=== PATIENT | female | born 1965 | race Caucasian/White ===

== ENCOUNTER 2020-04-09 15:09 | Inpatient (IN) | payer BC, SELFPAY ==
[2020-04-09] VITALS (32 sets, daily range): BP systolic 98–156; BP diastolic 53–81; PULSE 53–75; RESP 17–25; TEMP 36.4–36.7; O2SAT 90–99; BMI 53.3
--- NOTE | ~2020-04-09 | XR_ITS ---
XR chest 1V portable 04/09/2020 16:50 Indication: Shortness of breath. Lower extremity swelling. History of coronary artery disease. Procedure: AP portable chest Comparison: Comparison to multiple prior studies sequentially, with oldest reviewed study dated 12/2013. Findings: Cardiomegaly with mild chronic interstitial edema. Status post median sternotomy for CABG. There is a prosthetic heart valve. No pneumothorax or pleural effusion. No acute osseous abnormality. Impression: 1: Cardiomegaly with mild chronic interstitial edema. Reviewed, dictated and finalized at location A. Impression: 1: Cardiomegaly with mild chronic interstitial edema.
--- NOTE | ~2020-04-09 | CT_ITS ---
EXAMINATION: CT abdomen pelvis w con INDICATION: Lower abdominal pain TECHNIQUE: Computed tomographic images of the abdomen and pelvis were obtained after the administrati on of 100 cc of Omnipaque 350 intravenous contrast. The dose-length product (DLP) was 1419.52 mGy-cm. Automated exposure control and iterative reconstruction technique were employed. COMPARISON: 06/20/2013 FINDINGS: There are small pleural effusions. There are patchy groundglass opacities of the visualized lung bases. Surgical changes are noted in the mitral and tricuspid valves. The heart size is normal. The liver surface is nodular. There is a small volume of right upper quadrant right pericolic gutter ascites. Punctate calcifications in an otherwise normal spleen likely represent healed granulomatous disease. Stones are present in the nondistended gallbladder. The pancreas and adrenal glands are nor mal. The kidneys are unremarkable. There is no free intraperitoneal gas or evidence of bowel obstruct ion. No pathologically enlarged abdominal or pelvic lymph nodes are identified. There is diffuse anas arca, particularly involving the flanks and anterior abdominal wall. There is moderate thoracic and m ild lumbar spondylosis. A small fat-containing umbilical hernia is noted. IMPRESSION: 1. Cirrhosis with a small volume of ascites. 2. Patchy groundglass opacities of the visualized lung bases, infectious/inflammatory versus pulmonar y edema. 3. Anasarca involving the flanks and anterior abdominal subcutaneous tissues, correlate for celluliti s/panniculitis. Reviewed, dictated and finalized at location A. IMPRESSION: 1. Cirrhosis with a small volume of ascites. 2. Patchy groundglass opacities of the visualized lung bases, infectious/inflam matory versus pulmonary edema. 3. Anasarca involving the flanks and anterior abdominal subcutaneous tissues, c orrelate for cellulitis/panniculitis.
--- NOTE | 2020-04-09 15:16 | ECG_ITS ---
Measurements Intervals [place] Rate: 61 P: -28 [place]: 126 QRS: 94 QRSD: 90 T: 1 QT: 427 QTc: 430 Interpretive Statements SINUS OR ECTOPIC ATRIAL RHYTHM RIGHT AXIS DEVIATION BORDERLINE ST-T WAVE ABNORMALITY- INFERIOR LEADS BASELINE WANDER- V4-V6 BORDERLINE ECG Electronically Signed On 04-09-2020 15:56:59 CDT by Christos Sheth D.O.
[2020-04-09 15:56] LABS: Alveolar/Arterial O2 Gradient 61.9 mmHg; Base Excess ABG -0.2 mEq/l (+/-2.0); Carboxyhemoglobin 7.6 % THb (0-2.0); Fractional Inspired Oxygen 28 %; HCO3 ABG 25.6 mEq/l (22.0-26.0); Methemoglobin ABG 0.2 %THb (0-1.5); Oxygen Content ABG 19.2 %vol (16.0-22.0); Oxygen Saturation ABG 95.8 % (95.0-100.0); Oxyhemoglobin 88.1 % THb (90.0-100.0); PCO2 ABG 46.2 mmHg (35.0-45.0); PO2 ABG 83.2 mmHg (80.0-100.0); PO2 FiO2 Ratio Arterial Blood 2.97 %; Reduced Hemoglobin 4.1 %THb (0-5.0); Total Hemoglobin 15.5 g/dL (12.0-18.0); pH ABG 7.362 (7.350-7.450)
[2020-04-09 15:56] LABS: Basophils Absolute Auto 0.1 K/mm3 (0.0-0.1); Basophils Percent Auto 1.1 % (0.2-1.2); Eosinophils Absolute Auto 0.3 K/mm3 (0-0.3); Eosinophils Percent Auto 4.5 % (0-4.4); Hematocrit 46.8 % (37.0-47.0); Immature Granulocyte Absolute 0.03 K/mm3 (0.00-0.031); Immature Granulocyte Percent A 0.5 % (0-0.5); Lymphocytes Absolute Auto 1.38 K/mm3 (0.9-3.2); Lymphocytes Percent Auto 21.5 % (18.3-44.2); Mean Corpuscular HGB Conc 32.1 g/dl (32-36); Mean Corpuscular Hemoglobin 32.8 pg (26-34); Mean Corpuscular Volume 102.2 fl (80-100); Mean Platelet Volume 12.7 fl (7.4-10.4); Monocytes Absolute Auto 0.6 K/mm3 (0.1-0.6); Monocytes Percent Auto 9.3 % (2.6-8.5); Neutrophils Absolute Auto 4.1 K/mm3 (1.3-6.7); Neutrophils Percent Auto 63.1 % (45.5-73.1); Platelet Count Result 151 k/mm3 (150-375); Red Blood Count 4.58 M/mm3 (4.2-5.4); Red Cell Distribution Width 16.3 % (11.5-14.5); White Blood Count 6.4 K/mm3 (4.5-10.0)
[2020-04-09 15:57] LABS: Device NASAL CANNULA; Modified Allen's Test Pass; Site Drawn LEFT RADIAL
[2020-04-09 16:05] LABS: Ammonia 22 umol/L (9-30); Blood Urea Nitrogen 17 mg/dL (7-17); Calcium 8.7 mg/dL (8.4-10.2); Carbon Dioxide 29 mmol/L (22-30); Chloride 106 mmol/L (98-107); Estimated CRCL calculation 82 ml/min; Estimated Glomerular Filt Rate > 60; Glucose 90 mg/dL (65-105); INR 3.7; Potassium 3.9 mmol/L (3.4-5.0); Prothrombin Time 35.9 Seconds (11.1-14.7); Sodium 136 mmol/L (137-145)
[2020-04-09 16:06] LABS: Partial Thromboplastin Time 50.5 SECONDS (22.3-36.8)
[2020-04-09 16:08] LABS: Alanine Aminotransferase 23 U/L (4-35); Alkaline Phosphatase 328 U/L (38-126); Aspartate Amino Transferase 37 U/L (14-36); Bilirubin,Total 1.1 mg/dL (0.2-1.3)
[2020-04-09 16:17] LABS: Add Urine Microscopic? YES; Appearance Urine Clear (Clear); Bacteria Urine 4+ /hpf; Bilirubin Urine Negative (Negative); Blood Urine 1+ (Negative); Color Urine Yellow (Yellow); Glucose Urine UA Negative (Negative); Ketones Urine Negative (Negative); Leukocyte Esterase Ur Trace LEU/UL (Negative); Mucus Urine Rare /lpf; Nitrate Urine Positive (Negative); Protein Urine 1+ mg/dL (Negative); RBC Urine 0-2 /hpf (0-2); Specific Grav Ur 1.012 (1.001-1.035); Squamous Epithelial Cell Urine Many /hpf (Few); Urobilinogen Urine Negative mg/dL (<2.0)
[2020-04-09 16:17] LABS: NT Pro B Type Natriuretic Pept 740 PG/ML (5-100); Troponin I < 0.012 ng/mL (0.000-0.034)
--- NOTE | 2020-04-09 18:37 | ED.GENADULT ---
HPI - General Adult General Chief complaint: Shortness of Breath/Dyspnea Stated complaint: low O2, swelling, CHF problems Time Seen by Provider: 04/09/20 16:28 Source: patient and family History of Present Illness HPI narrative: 54 years old white female, morbidly obese, history of CHF, hypertension presents with lower abdominal pain for the last 7 days, possible constipation, also chronically swollen all over. Patient does not take her Lasix every day. She take it when she remembers. Patient denies any chest pain or shortness of breath. Related Data Home Medications Medication Instructions Recorded Confirmed amiodarone 200 mg tablet 200 mg PO DAILY 01/02/20 04/09/20 aspirin 81 mg tablet,delayed 81 mg PO DAILY 01/02/20 04/09/20 release budesonide-formoterol HFA 160 2 puff INHALATION Q12H 01/02/20 04/09/20 mcg-4.5 mcg/actuation aerosol inhaler gabapentin 300 mg capsule 300 mg PO TID 01/02/20 04/09/20 isosorbide mononitrate 60 mg 60 mg PO DAILY 01/02/20 04/09/20 tablet,extended release 24 hr lisinopril 2.5 mg tablet 2.5 mg PO DAILY 01/02/20 04/09/20 metoprolol tartrate 25 mg tablet 12.5 mg PO BID tablet 01/02/20 04/09/20 oxybutynin chloride 10 mg 10 mg PO DAILY 01/02/20 04/09/20 tablet,extended release 24 hr warfarin 3 mg tablet 3 mg PO [id number] 01/02/20 04/09/20 warfarin 4 mg tablet 4 mg PO QMWF 01/02/20 04/09/20 furosemide 40 mg tablet 40 mg PO DAILY tablet 04/09/20 04/09/20 Allergies Allergy/AdvReac Type Severity Reaction Status Date / Time Penicillins Allergy Unknown Unknown Verified 04/09/20 15:42 Review of Systems Review of Systems: Narrative: CONSTITUTIONAL: Denies fever, chills, or sweats. EYES: Denies visual changes, redness, or discharge. ENT: Denies rhinorrhea, congestion, sore throat, or otalgia. CARDIOVASCULAR: Denies chest pain, palpitations, or edema. RESPIRATORY: Denies cough or dyspnea. GASTROINTESTINAL: Denies abdominal pain, nausea, vomiting, or diarrhea. GENITOURINARY: Denies dysuria or hematuria. SKIN: Denies rash or itching., Trace edema lower extremity bilaterally. MUSCULOSKELETAL: Denies back pain, joint pain, or myalgia. NEUROLOGIC: Denies headache, numbness, or weakness. PSYCHIATRIC: Denies anxiety or depression. [facility] Past Medical History Medical History Atrial flutter, paroxysmal CAD in [place] artery COPD (chronic obstructive pulmonary disease) Dyslipidemia Essential (primary) hypertension Paroxysmal atrial fibrillation RLS (restless legs syndrome) Surgical History Surgical History History of aortic valve replacement with tissue graft 2007 History of heart artery stent Hx of aortic valve replacement Hx of CABG 2012 Hx of mitral valve replacement 2013 Mechanical heart valve present Status post cervical disc replacement Family History Family History Mother Diabetes mellitus Father Heart disease Social History Social History Smoking status: Current every day smoker Second hand tobacco smoke exposure: No Alcohol intake: current Substance use: current Substance use type: marijuana Gender identity (if verbalized by the patient): Female Spiritual care concerns: Yes Agree to blood products: Yes Exam Narrative: Exam Narrative: General appearance: Well-developed, well-nourished Skin: Normal color Head: Normocephalic, nontraumatic Eyes: Clear conjunctiva ENT: Oropharynx normal, ears normal, nose normal Neck: Supple, nontender Chest and respiratory: Airway patent, no respiratory distress, diminished end of air entry bilaterally, no accessory muscle use Heart: Regular rate/rhythm Abdomen: Soft, mild tenderness at the lower abdomen, no organomegaly, quiet bowel sounds Vascular: Normal peripheral pulses, normal capillary refill. Mu
[2020-04-09] MEDS: FUROSEMIDE INJ 40 MG/4 ML VIAL 60 MG IV PUSH (18:52)
[2020-04-09 19:03] LABS: Alveolar/Arterial O2 Gradient 36.6 mmHg; Base Excess ABG -0.3 mEq/l (+/-2.0); Fractional Inspired Oxygen 21 %; HCO3 ABG 25.6 mEq/l (22.0-26.0); Oxygen Content ABG 18.6 %vol (16.0-22.0); Oxygen Saturation ABG 88.8 % (95.0-100.0); Oxyhemoglobin 83.7 % THb (90.0-100.0); PCO2 ABG 46.4 mmHg (35.0-45.0); PO2 ABG 57.6 mmHg (80.0-100.0); PO2 FiO2 Ratio Arterial Blood 2.74 %; Total Hemoglobin 15.8 g/dL (12.0-18.0)
[2020-04-09 19:04] LABS: Device ROOM AIR; Site Drawn LEFT BRACHIAL
--- NOTE | 2020-04-09 19:16 | PC.NURSE ---
Assumed care of patient at this time. Report received from JESUS Hugo.
[2020-04-09] MEDS: NITROGLYCERIN OINTMENT 1 INCH DOSE TRANSDERM (21:01)
--- NOTE | 2020-04-09 21:50 | ADMGEN ---
This patient, Denita Schneider, was admitted to Intensive Care Unit-5. Patient/family oriented to hospital policies and general routines including ID bracelet, bed and alarms, visiting hours, pain management, procedures, bathroom and other care routines, personal items, smoking policy, room service/diet, and visiting hours. Valuables list has been completed. Information on how to activate the Rapid Response Team has been discussed. Patient/Family are encouraged to report perceived risks to care and to ask questions if they do not understand what they are told or what they should do.
[2020-04-09] MEDS: NICOTINE (*PBKC) 21 MG PATCH 1 PATCH TRANSDERM (22:17)
[2020-04-10] VITALS (11 sets, daily range): BP systolic 115–147; BP diastolic 52–80; PULSE 57–94; RESP 16–22; TEMP 36.2–36.5; O2SAT 90–97
--- NOTE | 2020-04-10 01:48 | PM.IMHP ---
H&P: HPI History of Present Illness Chief complaint: Shortness of breath and abdominal swelling Narrative: Date and time of patient contact: 04/10/2020 at 2:00 a.m. Denita Schneider is a 54 year old female with a past medical history morbid obesity, severe obstructive sleep apnea, prior aortic valve replacement, and CHF who presented to the ER from primary care physician office due to extremity swelling, abdominal pain and low oxygen saturations. The patient reports that she has had increased weight gain of about 15 lb, increased abdominal distension, and shortness of breath for the last 2-3 weeks. She has noticed over the last week that she has also developed increased orthopnea. She thought that she was constipated and took multiple bowel meds. She reports that she took Dulcolax and had a large bowel movement. She then went 3 or 4 days without having a bowel movement in again took some magnesium citrate with large bowel movement. She reports that she has had decreased appetite for the last couple of days due to her abdominal distension. She reports she thought her shortness of breath was due to her abdominal distension. She denies any cough or congestion. She denies any chest pain or palpitations. She has been compliant with a low sodium diet. However she only takes her Lasix on occasion as she does not want to be urinating as frequently. She denies any dysuria, hematuria or increased urinary urgency or frequency. Review of Systems Review of Systems: Narrative: 12 systems were reviewed with pertinent positives and negatives per HPI. Except as documented in the HPI, all other systems were reviewed and are negative. [facility] Past Medical History Medical History (Updated 04/10/20 @ 02:28 by Namrata Thomas DO) Atrial flutter, paroxysmal CAD in [place] artery CHF (congestive heart failure) COPD (chronic obstructive pulmonary disease) PFTs January 2017 demonstrated moderate obstructive ventilatory defect without acute bronchodilator response with moderately decreased DLCO Dyslipidemia Essential (primary) hypertension History of bicuspid aortic valve Status post aortic valve replacement with bioprosthetic aortic valve in 2007 with aortic root procedure due to small aortic root size. Paroxysmal atrial fibrillation RLS (restless legs syndrome) Severe obstructive sleep apnea Non adherent to CPAP therapy Surgical History Surgical History (Updated 04/10/20 @ 02:16 by Namrata Thomas DO) History of aortic valve replacement with tissue graft 2007 with recurrence of moves aortic stenosis in 2018 History of heart artery stent High-grade stenosis of vein graft to the right coronary with stent placement and the vein graft to her circumflex obtuse marginal was totally occluded, negative stress test June 2018 Hx of aortic valve replacement Bioprosthetic aortic valve replacement 2007 due to bicuspid aortic valve complicated by small aortic root size. With reimplantation of her left and right coronary arteries. Hx of CABG 2012 Hx of mitral valve replacement In 2012 she was found have stenosis at the implantation side of her left and right coronary arteries and mitral valve regurgitation requiring bypass graft to 1st diagonal to 1st marginal branch as well as distal right coronary artery and placement of a [place] mitral valve prosthesis and 28 mm physio ring tricuspid valve annuloplasty Mechanical heart valve present Mitral valve Status post cervical disc replacement Family History Family History Mother Diabetes mellitus Father Heart disease Social History Social History (Updated 04/10/20 @ 02:18 by Namrata Thomas DO) Social History: Primary care physician: Dr. Osmany Rodriguez Code status: Full code per EMR The patient reports that she started smoking at the age of 14. She has smoked between a half a pack to 1 pack of cigarettes per day since
[2020-04-10] MEDS: ASPIRIN 81 MG ENTERIC TABLET PO (03:00)
[2020-04-10] MEDS: ROSUVASTATIN 10 MG TABLET 40 MG PO (03:00)
[2020-04-10] MEDS: GABAPENTIN 300 MG CAPSULE PO ×2 (03:01→08:17)
[2020-04-10] MEDS: lisinopriL 2.5 MG TABLET PO (03:01)
[2020-04-10] MEDS: PRAMIPEXOLE 1 MG TABLET PO (03:02)
[2020-04-10 05:27] LABS: Blood Urea Nitrogen 16 mg/dL (7-17); Calcium 8.5 mg/dL (8.4-10.2); Carbon Dioxide 30 mmol/L (22-30); Chloride 103 mmol/L (98-107); Estimated CRCL calculation 67 ml/min; Estimated Glomerular Filt Rate 52; Glucose 107 mg/dL (65-105); Potassium 3.8 mmol/L (3.4-5.0); Sodium 139 mmol/L (137-145)
[2020-04-10] MEDS: NITROGLYCERIN OINTMENT 1 INCH DOSE TRANSDERM (05:27)
[2020-04-10 06:51] LABS: Hepatitis B Surface Antigen Negative (Negative)
[2020-04-10 06:55] LABS: HAV RESULT Negative (Negative); Hepatitis B Core IgM Result Negative (Negative)
[2020-04-10 07:08] LABS: Hepatitis C Virus Antibody Negative (Negative)
[2020-04-10] MEDS: ISOSORBIDE MONONITRATE 60 MG TAB.ER.24H PO (08:16)
[2020-04-10] MEDS: AMIODARONE HCL 200 MG TABLET PO (08:16)
[2020-04-10] MEDS: METOPROLOL SUCCINATE EXT REL 12.5 MG TABCR PO (08:16)
[2020-04-10] MEDS: FUROSEMIDE INJ 40 MG/4 ML VIAL IV PUSH (08:17)
[2020-04-10] MEDS: NICOTINE (*PBKC) 21 MG PATCH 1 PATCH TRANSDERM (08:17)
[2020-04-10 14:46] LABS: INR 3.5; Prothrombin Time 34.8 Seconds (11.1-14.7)
[2020-04-10 19:45] LABS: SARS-CoV-2 RNA PCR Negative
--- NOTE | 2020-04-11 18:33 | PM.DS ---
DS: Admitting Diagnosis Admitting Diagnosis Admitting Diagnosis: Heart failure, unspecified DS: Discharge Diagnosis Discharge Diagnosis (1) Acute exacerbation of congestive heart failure: Qualifiers: Heart failure type: unspecified Qualified Code(s): I50.9 - Heart failure, unspecified Code(s): I50.9 - Heart failure, unspecified Status: Acute Assessment and Plan: Due to the patient's non adherence to diuretic therapy. Patient has had large volume of urine output since arrival to the ICU. Lasix 40 mg IV b.i.d. while here and will start oral Lasix at home l continue patient's home amiodarone, Imdur, metoprolol, and lisinopril. Patient adamant about being discharged. She feels much better and has an appointment next week with Cardiology (2) Acute and chronic respiratory failure with hypoxia: Code(s): J96.21 - Acute and chronic respiratory failure with hypoxia Status: Acute Assessment and Plan: Due to CHF exacerbation. Weaned oxygen to room air before discharge (3) Cirrhosis of liver: Qualifiers: Ascites presence: with ascites Hepatic cirrhosis type: unspecified hepatic cirrhosis Qualified Code(s): K74.60 - Unspecified cirrhosis of liver; R18.8 - Other ascites Code(s): K74.60 - Unspecified cirrhosis of liver Status: Acute Assessment and Plan: Likely due to chronic CHF or hepatic steatosis. hepatitis panel negative (4) Mechanical heart valve present: Code(s): Z95.2 - Presence of prosthetic heart valve Status: Acute Assessment and Plan: INR 3.5 at discharge DS: Summary Hospital Course Hospital Course: 54-year-old white female status post aortic valve replacement and history of coronary artery disease and heart failure admitted with increasing shortness of breath and edema. Admitted to not taking her Lasix. With IV diuresis should she improve quickly and was able to be discharged home in a timely fashion. We had hoped she would stay 1 more day but insisted on discharge and she was much improved on room air and had a follow-up appoint with her power builder developer scheduled for 04/17 She will resume her usual medications with the addition of the Lasix 40 mg daily that she had been done collecting with her nitrate, beta-courtney, and BLANCHE-inhibitor She will get a basic metabolic profile and a INR 7/ Time Spent with Patient Time attestation: Total time spent providing and/or coordinating discharge services: 35 minutes Exam Narrative: Exam Narrative: Condition on discharge Blood pressure 160/52 pulse 62 saturating 90- 92% on room air afebrile Lungs very faint finding basilar crackles posteriorly CV regular rate rhythm faint systolic murmur Abdomen benign nontender Extremities some edema still present but patient states much improved Up and about says she feels much better than she did on admission DS: Data Data Completed and Pending Labs on day of discharge: Labs from last 24 hours 04/09/20 20:03 SARS-CoV-2 RNA (RT-PCR) Negative Discharge Plan Discharge Attending physician on discharge: Ramón Medellin Discharging Clinician: Ramón Medellin Patient Disposition: Home, Self-Care Activity: as tolerated Diet: low sodium and low cholesterol Patient Instructions: Antibiotic Form, Furosemide (By mouth), Heart Failure (DC), How to Stop Smoking (DC), Heart Healthy Diet (DC), COPD (Chronic Obstructive Pulmonary Disease) (DC), How To Wash Your Hands (DC), Low-Sodium Diet (DC), Droplet Precautions (GEN), COVID-19 (Coronavirus Disease 2019) (DC), COVID-19 and Chronic Health Conditions (DC), COVID-19: Slow the Coronavirus Spread (DC), Face Coverings (Masks) and COVID-19 (DC) Stand Alone Forms: General Discharge Information Follow-up/Referrals: Artem Choi MD [Physician] - Keep Reg. Scheduled Appt. López Rodriguez MD [Primary Care Provider] - Keep Reg. Scheduled Appt. Discharge Me
== END 2020-04-10 17:00 | disposition home or self-care (01) | DRG 189 ==
LOC: ANHED 20:15 → ANHICU 21:31
PROVIDERS: General Practice; Admitting Provider Internal Medicine; Emergency Provider Emergency Medicine; PCP Family Medicine; Visit Provider Internal Medicine
DX: J96.21 Acute and chronic respiratory failure with hypoxia (principal); Z68.43 Body mass index [BMI] 50.0-59.9, adult; R18.8 Other ascites; I11.0 Hypertensive heart disease with heart failure; I50.9 Heart failure, unspecified; K74.60 Unspecified cirrhosis of liver; J44.9 Chronic obstructive pulmonary disease, unspecified; Z11.59 Encounter for screening for other viral diseases; R82.71 Bacteriuria; R82.81 Pyuria; E66.01 Morbid (severe) obesity due to excess calories; G47.33 Obstructive sleep apnea (adult) (pediatric); I25.10 Atherosclerotic heart disease of native coronary artery without angina pectoris; I48.0 Paroxysmal atrial fibrillation; E78.5 Hyperlipidemia, unspecified; F17.210 Nicotine dependence, cigarettes, uncomplicated; Z79.01 Long term (current) use of anticoagulants; Z79.82 Long term (current) use of aspirin; Z91.14 Patient's other noncompliance with medication regimen; Z95.1 Presence of aortocoronary bypass graft; Z95.2 Presence of prosthetic heart valve; Z95.5 Presence of coronary angioplasty implant and graft
CPT/HCPCS: 36415; 36600; 71045; 74177; 80048; 80074; 80076; 81001; 82140; 82375; 82805; 83050; 83880; 84484; 85025; 85610; 85730; 87635; 93005; 94640; 96365; 96375; 99291; A9270; C9803; J0696; J1940; Q9967; U0003

== ENCOUNTER 2023-10-02 13:24 | Inpatient (IN) | payer BC, SELFPAY ==
--- NOTE | ~2023-10-02 | XR_ITS ---
XR shoulder LT min 2V, XR humerus LT 10/04/2023 13:21 Indication: Left shoulder and arm pain after fall Procedure: 4 views left shoulder and 2 views left humerus Comparison: No prior studies for comparison. Findings: There is anatomic alignment. No acute fracture or traumatic malalignment. No significant so ft tissue abnormality. No foreign bodies. Status post median sternotomy. There is a prosthetic heart valve. Impression: 1: No acute fracture. Reviewed, dictated and finalized at location A. [employer]MER Impression: 1: No acute fracture. Impression: 1: No acute fracture.
--- NOTE | ~2023-10-02 | XR_ITS ---
EXAMINATION: XR chest 2V DATE: 10/02/2023 14:32 INDICATION: Congestive heart failure presenting with shortness of breath and bilateral swelling of th e extremities. TECHNIQUE: frontal and lateral views of the chest were obtained. COMPARISON: Chest radiograph dated 04/09/2020 FINDINGS: Increased interstitial pattern in the bilateral mid and lower lung zones. No pleural effusion or pneu mothorax. Heart size is within normal limits for AP technique. Median sternotomy wires and mediastina l surgical clips are seen, likely from prior coronary artery bypass grafting. There is also been prio r tricuspid and mitral valve repairs. Thoracic kyphosis with moderate to severe spondylosis. Plate an d screw fixation for lower cervical anterior spinal fusion. IMPRESSION: 1. Increased interstitial pattern in the bilateral mid and lower lung zones consistent with mild pulm onary edema. Differential includes pneumonia. Reviewed, dictated and finalized at location A. R BASTER IMPRESSION: 1. Increased interstitial pattern in the bilateral mid and lower lung zones con sistent with mild pulmonary edema. Differential includes pneumonia.
--- NOTE | ~2023-10-02 | US_ITS ---
US venous doppler [facility] DATE: 10/04/2023 11:28 INDICATION: Bilateral lower extremity edema TECHNIQUE: Real-time and color flow imaging and Doppler analysis of the veins of the lower extremitie s COMPARISON: None FINDINGS: The great saphenous veins are patent bilaterally. There is spontaneous and phasic flow in the common femoral, femoral and popliteal veins bilaterally. The posterior tibial and peroneal veins are not demonstrated due to prominent edema of the lower extr emities. IMPRESSION: No evidence of deep venous thrombosis of the common femoral, femoral or popliteal veins Posterior tibial and peroneal veins are not visualized due to edema Reviewed, dictated and finalized at Location A. Reviewed, dictated and finalized at location A. [employer] SCIENCE OFFICER IMPRESSION: No evidence of deep venous thrombosis of the common femoral, femora l or popliteal veins Posterior tibial and peroneal veins are not visualized due to edema
[2023-10-02 13:25] VITALS: BP 129/67; PULSE 79; RESP 20; TEMP 36.4; O2SAT 95
--- NOTE | 2023-10-02 13:29 | ECG_ITS ---
Measurements Intervals [place] Rate: 76 P: [place]: 0 QRS: 71 QRSD: 97 T: 53 QT: 398 QTc: 448 Interpretive Statements ECTOPIC ATRIAL rHYTHM LOW QRS VOLTAGE IN EXTREMITY LEADS [QRS DEFLECTION < 0.5 mV IN LIMB LEADS] IVCD/INCOMPLETE LEFT BUNDLE BRANCH BLOCK ABNORMAL ECG COMPARED TO ECG 04/09/2020 15:30:36 NO SIGNIFICANT CHANGE Electronically Signed On 10-02-2023 15:25:28 CONCRETE WORKER by Artem Chio M.D.
[2023-10-02 14:34] LABS: Basophils Absolute Auto 0.1 K/mm3 (0.0-0.1); Basophils Percent Auto 0.9 % (0.2-1.2); Eosinophils Absolute Auto 0.7 K/mm3 (0-0.3); Eosinophils Percent Auto 8.4 % (0-4.4); Hematocrit 37.9 % (37.0-47.0); Hemoglobin 11.1 g/dL (12.0-15.0); Immature Granulocyte Absolute 0.09 K/mm3 (0.00-0.031); Immature Granulocyte Percent A 1.1 % (0-0.5); Lymphocytes Absolute Auto 1.04 K/mm3 (0.9-3.2); Lymphocytes Percent Auto 12.9 % (18.3-44.2); Mean Corpuscular HGB Conc 29.3 g/dl (32-36); Mean Corpuscular Hemoglobin 25.5 pg (26-34); Mean Corpuscular Volume 87.1 fl (80-100); Mean Platelet Volume 10.8 fl (7.4-10.4); Monocytes Absolute Auto 0.7 K/mm3 (0.1-0.6); Monocytes Percent Auto 8.2 % (2.6-8.5); Neutrophils Absolute Auto 5.5 K/mm3 (1.3-6.7); Neutrophils Percent Auto 68.5 % (45.5-73.1); Platelet Count Result 237 k/mm3 (150-375); Red Blood Count 4.35 M/mm3 (4.2-5.4); Red Cell Distribution Width 22.3 % (11.5-14.5); White Blood Count 8.1 K/mm3 (4.5-10.0)
--- NOTE | 2023-10-02 14:46 | ED.SOB ---
HPI - SOB/Dyspnea General Chief Complaint: Shortness of Breath/Dyspnea Stated Complaint: Swelling to Feet, CHF Time Seen by Provider: 10/02/23 14:40 Source: patient Limitations: no limitations History of Present Illness HPI Narrative: 58 yo presents with SOB and complaint of swollen feet. Hx of CHF. Denies CP. Also complaining of a rash everywhere. States she was supposed to have a pacemaker placed for her heart failure 09/23/23 but is was cancelled due to her rash which at the time had been attributed to to Farxiga. It is discribed as pruritic. He trialed triamcinolone topical cream with minimal change. She reports being on 80mg BID Lasix but did not take AM dose or dose last night; has enough of the medication (not out/in need of refills). Not currently on home O2 though states she was previously on 2LPM at night. Has never required bipap. 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 She didn't present there because she states she is currently arguing with her and didn't want to be found. She endorses orthopnea, having to sleep up in the chair. Related Data Home Medications Medication Instructions Recorded Confirmed amiodarone 200 mg tablet 200 mg PO DAILY 01/02/20 10/02/23 aspirin 81 mg tablet,delayed 81 mg PO DAILY 01/02/20 10/03/23 release (Adult Low Dose Aspirin) budesonide-formoterol HFA 160 2 puff inhalation Q12H PRN 01/02/20 10/02/23 mcg-4.5 mcg/actuation aerosol Shortness Of Breath Or Wheezing inhaler (Symbicort) gabapentin 300 mg capsule 300 mg PO BID 01/02/20 10/02/23 isosorbide mononitrate 60 mg 60 mg PO DAILY 01/02/20 10/02/23 tablet,extended release 24 hr metoprolol succinate 25 mg 50 mg PO DAILY 04/09/20 10/02/23 tablet,extended release 24 hr nitroglycerin 0.3 mg sublingual 0.3 mg sublingual PRN 04/09/20 10/02/23 tablet warfarin 3 mg tablet See Rx Instructions .Route .COMPLEX 04/09/20 10/02/23 multivitamin with minerals 1 tablet PO DAILY 06/11/20 10/02/23 (Hair,Skin and Nails tablet) psyllium husk 0.4 gram capsule 0.4 gm PO DAILY 06/11/20 10/02/23 (Daily Fiber) spironolactone 25 mg tablet 50 mg PO DAILY 06/11/20 10/03/23 famotidine 40 mg tablet 40 mg PO DAILY 10/03/23 10/03/23 furosemide 80 mg tablet 80 mg PO DAILY 10/03/23 10/03/23 insulin glargine-yfgn 100 unit/mL 15 unit subcut QHS 10/03/23 10/03/23 (3 mL) subcutaneous pen (Semglee (insulin glargine-yfgn) Pen) quetiapine 200 mg tablet 200 mg PO QHS 10/03/23 10/03/23 venlafaxine 150 mg 150 mg PO DAILY 10/03/23 10/03/23 capsule,extended release 24 hr Allergies Allergy/AdvReac Type Severity Reaction Status Date / Time Penicillins Allergy Unknown Unknown Verified 06/11/20 13:50 [facility] Past Medical History Medical History (Updated 10/11/23 @ 06:33 by Veronica Jarvis MD) Atrial flutter, paroxysmal CAD in [place] artery CHF (congestive heart failure) COPD (chronic obstructive pulmonary disease) PFTs January 2017 demonstrated moderate obstructive ventilatory defect without acute bronchodilator response with moderately decreased DLCO Dyslipidemia Essential (primary) hypertension History of bicuspid aortic valve Status post aortic valve replacement with bioprosthetic aortic valve in 2007 with aortic root procedure due to small aortic root size. CAMI (obstructive sleep apnea) Paroxysmal atrial fibrillation RLS (restless legs syndrome) Severe obstructive sleep apnea Non adherent to CPAP therapy Surgical History Surgical History History of aortic valve replacement with tissue graft 2007 with recurrence of moves aortic stenosis in 2018 History of heart artery stent High-grade stenosis of vein graft to the right coronary with stent placement and the vein graft to her circumflex obtuse marginal was totally occluded, negative stress test June 2018 Hx of aortic valve replacement Bioprosthetic aortic valve replacement 2007 due to bicuspid aortic valve complicated by small aortic
[2023-10-02 14:49] LABS: INR 1.2; Prothrombin Time 15.9 Seconds (11.1-14.7)
[2023-10-02 14:52] VITALS: PULSE 79; RESP 22; O2SAT 93
[2023-10-02 15:57] VITALS: BP 120/81; PULSE 80; RESP 20; O2SAT 100
[2023-10-02 16:09] LABS: Alanine Aminotransferase 30 U/L (6-35); Alkaline Phosphatase 311 U/L (38-126); Anion Gap 9 mmol/L (8-16); Aspartate Amino Transferase 40 U/L (14-36); Bilirubin,Total 1.8 mg/dL (0.2-1.3); Blood Urea Nitrogen 13 mg/dL (7-17); Calcium 9.2 mg/dL (8.4-10.2); Carbon Dioxide 23 mmol/L (22-30); Chloride 108 mmol/L (98-107); Estimated CRCL calculation 72 ml/min; Estimated Glomerular Filt Rate > 60; Glucose 76 mg/dL (65-110); Potassium 4.1 mmol/L (3.4-5.0); Sodium 140 mmol/L (137-145)
[2023-10-02 16:21] LABS: NT Pro B Type Natriuretic Pept 2130 pg/mL (19.9-100); Troponin I < 0.012 ng/mL (0.000-0.034)
[2023-10-02] MEDS: FUROSEMIDE INJ 100 MG/10 ML VIAL 80 MG IV PUSH (18:35)
[2023-10-02] MEDS: diphenhydrAMINE HCl INJ 50 MG/ML VIAL 25 MG IV PUSH (19:01)
[2023-10-02 19:03] VITALS: BP 135/75; PULSE 81; RESP 20; O2SAT 100
--- NOTE | 2023-10-02 20:45 | PM.IMHP ---
H&P: HPI History of Present Illness Date/Time: 10/02/23 20:45 Chief Complaint: SHORTNESS OF BREATH Narrative: THIS IS A 58-YEAR-OLD FEMALE WITH PAST MEDICAL HISTORY SIGNIFICANT FOR MORBID OBESITY, CONGESTIVE HEART FAILURE, INSULIN-DEPENDENT DIABETES MELLITUS, HYPERTENSION, ATRIAL FLUTTER, COPD/EMPHYSEMA, PATIENT IS A FORMER SMOKER CURRENTLY VAPES, HISTORY OF CORONARY ARTERY BYPASS GRAFT, SEVERE OBSTRUCTIVE SLEEP APNEA, RESTLESS LEG SYNDROME. PATIENT PRESENTS TO THE EMERGENCY ROOM DUE TO BILATERAL LOWER EXTREMITY WORSENING SWELLING OVERALL SWELLING SHORTNESS OF BREATH. DENIES CHEST PAIN DENIES NAUSEA VOMITING DIARRHEA DENIES FEVERS RIGORS OR CHILLS. EXAMINATION: XR chest 2V DATE: 10/02/2023 14:32 INDICATION: Congestive heart failure presenting with shortness of breath and bilateral swelling of the extremities. TECHNIQUE: frontal and lateral views of the chest were obtained. COMPARISON: Chest radiograph dated 04/09/2020 FINDINGS: Increased interstitial pattern in the bilateral mid and lower lung zones. No pleural effusion or pneumothorax. Heart size is within normal limits for AP technique. Median sternotomy wires and mediastinal surgical clips are seen, likely from prior coronary artery bypass grafting. There is also been prior tricuspid and mitral valve repairs. Thoracic kyphosis with moderate to severe spondylosis. Plate and screw fixation for lower cervical anterior spinal fusion. IMPRESSION: 1. Increased interstitial pattern in the bilateral mid and lower lung zones consistent with mild pulmonary edema. Differential includes pneumonia. Review of Systems Review of Systems: SHORTNESS OF BREATH Constitutional: Constitutional: Denies chills, Denies fever(s), Denies frequent falls and Denies night sweats Eyes: Eyes: Denies change in vision ENT: Denies dysphagia and Denies odynophagia Cardiovascular: Cardiovascular: Denies chest pain, Reports pedal edema, Reports edema, Reports leg edema, Denies radiating jaw, neck or arm pain and Denies palpitations Respiratory: Respiratory: Denies cough and Reports dyspnea Gastrointestinal: Gastrointestinal: Denies abdominal pain, Denies dyspepsia, Denies heartburn, Denies diarrhea, Denies nausea and Denies vomiting Genitourinary: Genitourinary: Denies dysuria Musculoskeletal: Musculoskeletal: Reports back pain Integumentary/Breasts: Skin/Breast: Reports rash Neurologic: Denies focal weakness and Denies Sensory deficit (Neuro) Psychiatric: Psychiatric: Reports no additional psychiatric complaints and Reports as per HPI Endocrine: Endocrine: Denies fatigue, Denies flushing, Denies heat intolerance, Denies polyphagia, Denies polydipsia and Denies palpitations Hematologic/Lymphatic: Hematologic/Lymphatic: Reports no additional hematologic/lymphatic complaints and Reports as per HPI Allergic/Immunologic: Allergic/Immunologic: Reports no additional allergic/immunologic complaints and Reports as per HPI PMFSH Past Medical History Medical History (Updated 10/03/23 @ 22:02 by Max Curran MD) Atrial flutter, paroxysmal CAD in [place] artery CHF (congestive heart failure) COPD (chronic obstructive pulmonary disease) PFTs January 2017 demonstrated moderate obstructive ventilatory defect without acute bronchodilator response with moderately decreased DLCO Dyslipidemia Essential (primary) hypertension History of bicuspid aortic valve Status post aortic valve replacement with bioprosthetic aortic valve in 2007 with aortic root procedure due to small aortic root size. CAMI (obstructive sleep apnea) Paroxysmal atrial fibrillation RLS (restless legs syndrome) Severe obstructive sleep apnea Non adherent to CPAP therapy Surgical History Surgical History History of aortic valve replacement with tissue graft 2007 with recurrence of moves aortic stenosis in 2018 History of heart artery stent High-grade stenosis of vein graft t
--- NOTE | 2023-10-02 20:49 | ADMGEN ---
This patient, Denita Schneider, was admitted to 2 Medical Room 259-01. Patient/family oriented to hospital policies and general routines including ID bracelet, bed and alarms, visiting hours, pain management, procedures, bathroom and other care routines, personal items, smoking policy, room service/diet, and visiting hours. Information on how to activate the Rapid Response Team has been discussed. Patient/Family are encouraged to report perceived risks to care and to ask questions if they do not understand what they are told or what they should do.
[2023-10-02 20:55] VITALS: PULSE 90
[2023-10-02 21:16] VITALS: BP 100/42; PULSE 84; RESP 16; TEMP 36.6; O2SAT 95
[2023-10-03] VITALS (12 sets, daily range): BP systolic 100–137; BP diastolic 50–71; PULSE 74–98; RESP 18–20; TEMP 36.6–36.7; O2SAT 94–99
--- NOTE | 2023-10-03 | ECHO_ITS ---
Patient Info Name: Denita Schneider Age: 58 years : 1965 Gender: Female Ht: 61 in Wt: 246 lbs BSA: 2.26 m2 HR: 99 bpm BP: 109 / 50 mmHg Heart Rhythm: Sinus Rhythm Technical Quality: Good Exam Date: 10/03/2023 1:59 PM Exam Location: Echo Lab Patient Status: Inpatient Admit Date: 10/02/2023 Staff Ordering Physician: Usman Higginbotham APRN [employer] Hand: Stevo Garcia RDCS Attending Provider: Max Curran MD Referring Physician: Neftaly PEDRO; Exam Type: CA echo doppler color flow Study Info Indications - CHF EXacerbation Complete two-dimensional, color flow and Doppler transthoracic echocardiogram is performed. Summary 1. Complete two-dimensional, color flow and Doppler transthoracic echocardiogram is performed. 2. Normal left ventricular size with mild left ventricular hypertrophy. Overall good left ventricular function, estimated ejection fraction 50-55%. 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 Grade 2 diastolic dysfunction is present. 3. Mild right ventricular enlargement. 4. Left atrial chamber dimension is mildly enlarged. 5. Right ventricular chamber dimension is mildly enlarged. 6. There is mild regurgitation of the mechanical mitral valve. 7. There is no stenosis of the mechanical mitral valve. Mitral valve area was 2.7 cm2. 8. There is moderate sclerosis of the bioprosthetic aortic valve leaflets. No stenosis. V max was 3.2 M/S, mean gradient 24 mmHg, YASH 2.0 cm2. 9. There is mild to moderate tricuspid valve regurgitation. 10. Severe pulmonary hypertension, estimated pulmonary arterial systolic pressure is 62 mmHg. 11. Atrial fibrillation. 12. Technically difficult study. Left Ventricle Left ventricular chamber dimension is normal. Left ventricular systolic function is normal, estimated at 50-55%. There is mildly increased left ventricular wall thickness. Left ventricular septal wall motion is normal. The left ventricular diastolic function is grade II diastolic dysfunction. Right Ventricle Right ventricular chamber dimension is mildly enlarged. Right ventricular systolic function is normal. Left Atria Left atrial chamber dimension is mildly enlarged. Right Atria Right atrial chamber dimension is normal. Aortic Valve The bioprosthetic aortic valve is trileaflet. There is moderate sclerosis of the bioprosthetic aortic valve leaflets. No stenosis. V max was 3.2 M/S, mean gradient 24 mmHg, YASH 2.0 cm2. There is no bioprosthetic aortic valve stenosis. There is no regurgitation of the bioprosthetic aortic valve. Pulmonic Valve The pulmonic valve is normal. There is no pulmonic valve stenosis. There is mild pulmonic regurgitation. Mitral Valve The mechanical mitral valve leaflefts are Empty. There is no stenosis of the mechanical mitral valve. Mitral valve area was 2.7 cm2. There is mild regurgitation of the mechanical mitral valve. Tricuspid Valve The tricuspid valve leaflets are normal. There is no significant tricuspid valve stenosis. There is mild to moderate tricuspid valve regurgitation. Severe pulmonary hypertension, estimated pulmonary arterial systolic pressure is 62 mmHg. Pericardium/Pleural The pericardium appears normal. There is no pericardial effusion. Inferior Vena Cava Not well visualized inferior vena cava with >50% collapse upon inspiration consistent with Empty right atrial pressure, 10 mmHg. Aorta The aortic root size at the sinus of Valsalva is normal. The prox ascending aorta size is normal. Left Ventricular Outflow Tract
[2023-10-03] MEDS: ACETAMINOPHEN 325 MG TABLET 650 MG PO ×2 (10:38→23:17)
[2023-10-03 12:44] LABS: CRP 6.3 mg/dL (<1.0)
[2023-10-03 12:45] LABS: Hemoglobin A1C 6.1 % (<5.7)
[2023-10-03 12:58] LABS: Glucose Point of Care 118 mg/dl (65-105)
[2023-10-03 13:21] LABS: Erythrocyte Sedimentation Rate 46 mm/hr (0-20)
[2023-10-03 13:40] LABS: Procalcitonin 0.1 ng/mL
[2023-10-03] MEDS: AMIODARONE HCL 200 MG TABLET PO (14:26)
[2023-10-03] MEDS: VANCOMYCIN 1,500 MG/NS 500 ML 1,500 MG/500 ML BAG 250 MG IVPB (14:26)
[2023-10-03] MEDS: GABAPENTIN 300 MG CAPSULE PO ×2 (14:26→21:14)
[2023-10-03] MEDS: SPIRONOLACTONE 25 MG TABLET PO (14:27)
[2023-10-03] MEDS: BUMETANIDE INJ 1 MG/4 ML VIAL 2 MG IV PUSH (14:27)
[2023-10-03] MEDS: METOPROLOL SUCCINATE EXT REL 50 MG TABCR PO (14:27)
[2023-10-03] MEDS: BETAMETHASONE/CLOTRIMAZOLE CR 45 GM TUBE 1 APPLIC TOPICAL ×2 (14:28→21:16)
--- NOTE | 2023-10-03 14:28 | PM.IMPN ---
Progress Note: A&P Assessment and Plan (1) Swelling of lower extremity: Code(s): M79.89 - Other specified soft tissue disorders Status: Acute Assessment and Plan: swelling of bilateral lower extremities, much worse on the left. Differential includes CHF exacerbation, vasculitis, peripheral vascular disease, cellulitis, DVT (2) Cellulitis of left leg: Code(s): L03.116 - Cellulitis of left lower limb Status: Acute Assessment and Plan: significant swelling left lower leg with weeping wounds scaly rash erythema diffusely worse than the right leg. ordered IV vancomycin and oral prednisone. Ordered Lotrisone cream topically to the rash area, this is to continue pending wound consult. (3) Rash: Code(s): R21 - Rash and other nonspecific skin eruption Status: Acute Assessment and Plan: Ordered Lotrisone cream topically to the rash area, this is to continue pending wound consult. (4) Essential (primary) hypertension: Code(s): I10 - Essential (primary) hypertension Status: Acute Assessment and Plan: Blood pressure reviewed 10/03. Blood pressures have been on the lower side, restart metoprolol hold on isosorbide (5) Paroxysmal atrial fibrillation: Code(s): I48.0 - Paroxysmal atrial fibrillation Status: Acute Assessment and Plan: Heart rate regular rhythm regular at time assessment, history of paroxysmal atrial fibrillation on warfarin for anticoagulation. INR is subtherapeutic. (6) CAMI (obstructive sleep apnea): Code(s): G47.33 - Obstructive sleep apnea (adult) (pediatric) Status: Acute Assessment and Plan: will order auto PAP while admitted (7) Mechanical heart valve present: Code(s): Z95.2 - Presence of prosthetic heart valve Status: Acute Assessment and Plan: on warfarin, INR subtherapeutic (8) Tobacco dependence syndrome: Code(s): F17.200 - Nicotine dependence, unspecified, uncomplicated Status: Acute Assessment and Plan: reinforce smoking cessation, nicotine patch available p.r.n. (9) Diabetes type 2, controlled: Code(s): E11.9 - Type 2 diabetes mellitus without complications Status: Acute Assessment and Plan: Patient does not take anything for diabetes and only checks her blood sugar in the morning and at night at home. Hemoglobin A1c is 6.1. Because of the addition steroids we will obtain fingerstick glucose before meals and at bedtime and use sliding scale insulin as needed while admitted Time Spent With Patient Time with patient: Greater than 35 minutes Subjective Date/time seen: 10/03/23 11:28 Interval history: This is a 58-year-old female patient extensive medical history including valve replacements, paroxysmal atrial fibrillation, COPD, tobacco dependence, liver cirrhosis, coronary artery disease stents, CABG, hypertension who is admitted to the hospital for bilateral lower extremity swelling left worse than right with diffuse rash across lower legs, abdomen and face/chin. Patient reports that she takes several diuretics at home including Lasix and Bumex and spironolactone but despite this she has had growing swelling in her legs. No significant shortness of breath or cough. She complains mostly of the H that the rash is causing. Left lower extremity is extremely swollen with weeping and signs of cellulitis. Will order venous ultrasound to rule out DVT, IV antibiotics and oral steroids. Will also use Lotrisone cream topically as the rash appears a could be fungal in nature as well. The legs appear they could be vasculitis with superimposed cellulitis. Wound Care will be consulted but unable to see the patient for a couple of days. We will also obtain echocardiogram, low-sodium diet with fluid restriction and daily labs. Review of Systems Review of Systems: All systems reviewed & are unremarkable except as noted in HPI and below Exam Clif
[2023-10-03] MEDS: methylPREDNISolone SOD SUCC 125 MG VIAL IV PUSH (14:33)
[2023-10-03] MEDS: hydrOXYzine HCL 25 MG TABLET 50 MG PO ×2 (14:44→23:17)
[2023-10-03 17:19] LABS: Glucose Point of Care 135 mg/dl (65-105)
[2023-10-03] MEDS: WARFARIN (*PBKC) 3 MG TABLET PO (18:40)
[2023-10-03] MEDS: ASPIRIN 81 MG ENTERIC TABLET PO (18:40)
[2023-10-03] MEDS: PRAMIPEXOLE 1 MG TABLET PO (21:14)
[2023-10-03] MEDS: ROSUVASTATIN 10 MG TABLET 40 MG PO (21:14)
[2023-10-03] MEDS: FUROSEMIDE 80 MG TABLET PO (21:14)
[2023-10-03 21:28] LABS: Glucose Point of Care 248 mg/dl (65-105)
[2023-10-03] MEDS: INSULIN GLARGINE (*BKC) 100 UNITS/ML 15 UNITS SUB-Q (22:49)
[2023-10-04] VITALS (11 sets, daily range): BP systolic 122–147; BP diastolic 49–89; PULSE 55–68; RESP 16; TEMP 36.4–36.6; O2SAT 96–100
--- NOTE | 2023-10-04 00:47 | PCRCNOTE ---
Patient refused her 2000 inhaler. Patient states she only takes her inhaler at home PRN (like once a month). She also refused the use of a hospital cpap.
[2023-10-04 00:59] LABS: Glucose Point of Care 162 mg/dl (65-105)
[2023-10-04 06:02] LABS: Basophils Percent Auto 0.2 % (0.2-1.2); Hematocrit 40.2 % (37.0-47.0); Hemoglobin 12.1 g/dL (12.0-15.0); Immature Granulocyte Absolute 0.09 K/mm3 (0.00-0.031); Lymphocytes Absolute Auto 0.63 K/mm3 (0.9-3.2); Lymphocytes Percent Auto 7.1 % (18.3-44.2); Mean Corpuscular HGB Conc 30.1 g/dl (32-36); Mean Corpuscular Hemoglobin 25.7 pg (26-34); Mean Corpuscular Volume 85.4 fl (80-100); Mean Platelet Volume 10.4 fl (7.4-10.4); Monocytes Absolute Auto 0.1 K/mm3 (0.1-0.6); Monocytes Percent Auto 1.1 % (2.6-8.5); Neutrophils Percent Auto 90.6 % (45.5-73.1); Platelet Count Result 234 k/mm3 (150-375); Red Blood Count 4.71 M/mm3 (4.2-5.4); Red Cell Distribution Width 22.8 % (11.5-14.5); White Blood Count 8.9 K/mm3 (4.5-10.0)
[2023-10-04 06:17] LABS: INR 1.1; Prothrombin Time 15.1 Seconds (11.1-14.7)
[2023-10-04 06:20] LABS: Alanine Aminotransferase 31 U/L (6-35); Albumin Level 4.5 g/dL (3.5-5.1); Alkaline Phosphatase 364 U/L (38-126); Anion Gap 12 mmol/L (8-16); Aspartate Amino Transferase 32 U/L (14-36); Bilirubin,Total 1.4 mg/dL (0.2-1.3); Blood Urea Nitrogen 15 mg/dL (7-17); CRP 6.1 mg/dL (<1.0); Calcium 9.5 mg/dL (8.4-10.2); Carbon Dioxide 24 mmol/L (22-30); Chloride 104 mmol/L (98-107); Estimated CRCL calculation 60 ml/min; Estimated Glomerular Filt Rate 51; Glucose 256 mg/dL (65-110); Phosphorus 3.4 mg/dL (2.5-4.5); Potassium 3.5 mmol/L (3.4-5.0); Sodium 140 mmol/L (137-145)
[2023-10-04 06:40] LABS: Erythrocyte Sedimentation Rate 87 mm/hr (0-20)
[2023-10-04 08:30] LABS: Glucose Point of Care 253 mg/dl (65-105)
[2023-10-04] MEDS: WARFARIN (*PBKC) 5 MG TABLET PO (08:42)
[2023-10-04] MEDS: INSULIN ASPART (*BKC) 100 UNITS/ML SUB-Q ×2 (08:42→21:10)
[2023-10-04] MEDS: AMIODARONE HCL 200 MG TABLET PO (08:43)
[2023-10-04] MEDS: predniSONE 20 MG TABLET 60 MG PO (08:43)
[2023-10-04] MEDS: VANCOMYCIN 1,500 MG/NS 500 ML 1,500 MG/500 ML BAG 250 MG IVPB (08:43)
[2023-10-04] MEDS: GABAPENTIN 300 MG CAPSULE PO ×2 (08:44→21:03)
[2023-10-04] MEDS: BUMETANIDE 1 MG TABLET 2 MG PO ×2 (08:44→17:58)
[2023-10-04] MEDS: THERAPEUTIC MULTIVITAMINS/MINERALS TAB (*BKC) 1 TABLET PO (08:44)
[2023-10-04] MEDS: VENLAFAXINE HCL XR 75 MG CAP.ER.24H 150 MG PO (08:44)
[2023-10-04] MEDS: FAMOTIDINE 20 MG TABLET 40 MG PO (08:44)
[2023-10-04] MEDS: METOPROLOL SUCCINATE EXT REL 50 MG TABCR PO (08:44)
[2023-10-04] MEDS: BETAMETHASONE/CLOTRIMAZOLE CR 45 GM TUBE 1 APPLIC TOPICAL ×2 (08:44→21:03)
[2023-10-04] MEDS: SPIRONOLACTONE 25 MG TABLET 50 MG PO (08:45)
[2023-10-04 09:02] LABS: Anisocytosis 1+ (NORMAL); Hypochromasia 1+ (NORMAL); Platelet Estimate Adequate (Adequate); Schistocytes Rare (NORMAL)
[2023-10-04 12:05] LABS: Glucose Point of Care 160 mg/dl (65-105)
--- NOTE | 2023-10-04 13:46 | PM.IMPN ---
Progress Note: A&P Assessment and Plan (1) Swelling of lower extremity: Code(s): M79.89 - Other specified soft tissue disorders Status: Acute Assessment and Plan: Swelling of bilateral lower extremities, much worse on the left. Differential includes CHF exacerbation, vasculitis, peripheral vascular disease, cellulitis, DVT (2) Cellulitis of left leg: Code(s): L03.116 - Cellulitis of left lower limb Status: Acute Assessment and Plan: Significant swelling left lower leg with weeping wounds scaly rash erythema diffusely worse than the right leg. ordered IV vancomycin and oral prednisone. Ordered Lotrisone cream topically to the rash area, this is to continue pending wound consult. (3) Rash: Code(s): R21 - Rash and other nonspecific skin eruption Status: Acute Assessment and Plan: Ordered Lotrisone cream topically to the rash area, this is to continue pending wound consult. (4) Essential (primary) hypertension: Code(s): I10 - Essential (primary) hypertension Status: Acute Assessment and Plan: Blood pressure reviewed 10/03. Blood pressures have been on the lower side, restart metoprolol hold on isosorbide (5) Paroxysmal atrial fibrillation: Code(s): I48.0 - Paroxysmal atrial fibrillation Status: Acute Assessment and Plan: Heart rate regular rhythm regular at time assessment, history of paroxysmal atrial fibrillation on warfarin for anticoagulation. INR is subtherapeutic. (6) CAMI (obstructive sleep apnea): Code(s): G47.33 - Obstructive sleep apnea (adult) (pediatric) Status: Acute Assessment and Plan: Will order auto PAP while admitted (7) Mechanical heart valve present: Code(s): Z95.2 - Presence of prosthetic heart valve Status: Acute Assessment and Plan: On warfarin, INR subtherapeutic (8) Tobacco dependence syndrome: Code(s): F17.200 - Nicotine dependence, unspecified, uncomplicated Status: Acute Assessment and Plan: Reinforce smoking cessation, nicotine patch available p.r.n. (9) Diabetes type 2, controlled: Code(s): E11.9 - Type 2 diabetes mellitus without complications Status: Acute Assessment and Plan: Patient does not take anything for diabetes and only checks her blood sugar in the morning and at night at home. Hemoglobin A1c is 6.1. Because of the addition steroids we will obtain fingerstick glucose before meals and at bedtime and use sliding scale insulin as needed while admitted Time Spent With Patient Time with patient: 25 - 35 minutes Subjective Date/time seen: 10/04/23 13:46 Interval history: 10/03: This is a 58-year-old female patient extensive medical history including valve replacements, paroxysmal atrial fibrillation, COPD, tobacco dependence, liver cirrhosis, coronary artery disease stents, CABG, hypertension who is admitted to the hospital for bilateral lower extremity swelling left worse than right with diffuse rash across lower legs, abdomen and face/chin. Patient reports that she takes several diuretics at home including Lasix and Bumex and spironolactone but despite this she has had growing swelling in her legs. No significant shortness of breath or cough. She complains mostly of the H that the rash is causing. Left lower extremity is extremely swollen with weeping and signs of cellulitis. Will order venous ultrasound to rule out DVT, IV antibiotics and oral steroids. Will also use Lotrisone cream topically as the rash appears a could be fungal in nature as well. The legs appear they could be vasculitis with superimposed cellulitis. Wound Care will be consulted but unable to see the patient for a couple of days. We will also obtain echocardiogram, low-sodium diet with fluid restriction and daily labs. 10/04: Patient reports that she is feeling somewhat better today. She is not scratching the rash nearly as often. Swelling in her
[2023-10-04] MEDS: ENOXAPARIN 120 MG/0.8 ML SYRINGE SUB-Q (14:47)
[2023-10-04 17:04] LABS: Glucose Point of Care 199 mg/dl (65-105)
[2023-10-04] MEDS: ASPIRIN 81 MG ENTERIC TABLET PO (17:58)
[2023-10-04] MEDS: WARFARIN (*PBKC) 3 MG TABLET PO (17:58)
[2023-10-04] MEDS: ROSUVASTATIN 10 MG TABLET 40 MG PO (21:03)
[2023-10-04] MEDS: PRAMIPEXOLE 1 MG TABLET PO (21:03)
[2023-10-04] MEDS: QUEtiapine FUMARATE 100 MG TABLET 200 MG PO (21:03)
[2023-10-04] MEDS: INSULIN GLARGINE (*BKC) 100 UNITS/ML 15 UNITS SUB-Q (21:10)
[2023-10-04 23:05] LABS: Glucose Point of Care 201 mg/dl (65-105)
[2023-10-05] MEDS: VANCOMYCIN 1,500 MG/NS 500 ML 1,500 MG/500 ML BAG 250 MG IVPB (01:33)
[2023-10-05] MEDS: ENOXAPARIN 100 MG/ML SYRINGE SUB-Q ×2 (01:33→12:52)
[2023-10-05 05:58] LABS: Basophils Percent Auto 0.3 % (0.2-1.2); Eosinophils Absolute Auto 0.1 K/mm3 (0-0.3); Eosinophils Percent Auto 0.4 % (0-4.4); Hemoglobin 10.5 g/dL (12.0-15.0); Immature Granulocyte Absolute 0.13 K/mm3 (0.00-0.031); Lymphocytes Absolute Auto 0.89 K/mm3 (0.9-3.2); Mean Corpuscular HGB Conc 29.2 g/dl (32-36); Mean Corpuscular Hemoglobin 25.7 pg (26-34); Mean Platelet Volume 10.7 fl (7.4-10.4); Monocytes Absolute Auto 0.8 K/mm3 (0.1-0.6); Monocytes Percent Auto 6.5 % (2.6-8.5); Neutrophils Absolute Auto 10.8 K/mm3 (1.3-6.7); Neutrophils Percent Auto 84.8 % (45.5-73.1); Platelet Count Result 196 k/mm3 (150-375); Red Blood Count 4.09 M/mm3 (4.2-5.4); Red Cell Distribution Width 22.9 % (11.5-14.5); White Blood Count 12.7 K/mm3 (4.5-10.0)
[2023-10-05 06:00] VITALS: BP 137/87; PULSE 62; RESP 16; TEMP 36.7; O2SAT 95
[2023-10-05 06:09] LABS: Alanine Aminotransferase 24 U/L (6-35); Albumin Level 3.8 g/dL (3.5-5.1); Alkaline Phosphatase 269 U/L (38-126); Anion Gap 11 mmol/L (8-16); Aspartate Amino Transferase 28 U/L (14-36); Bilirubin,Total 0.9 mg/dL (0.2-1.3); Blood Urea Nitrogen 19 mg/dL (7-17); CRP 2.7 mg/dL (<1.0); Calcium 8.6 mg/dL (8.4-10.2); Carbon Dioxide 24 mmol/L (22-30); Chloride 106 mmol/L (98-107); Estimated CRCL calculation 60 ml/min; Estimated Glomerular Filt Rate 51; Glucose 116 mg/dL (65-110); Sodium 141 mmol/L (137-145)
[2023-10-05 08:12] LABS: Anisocytosis 1+ (NORMAL); Hypochromasia 1+ (NORMAL); Platelet Estimate Adequate (Adequate); Schistocytes None Seen (NORMAL)
[2023-10-05 08:18] LABS: Glucose Point of Care 124 mg/dl (65-105)
[2023-10-05 09:39] LABS: Erythrocyte Sedimentation Rate 56 mm/hr (0-20)
[2023-10-05] MEDS: THERAPEUTIC MULTIVITAMINS/MINERALS TAB (*BKC) 1 TABLET PO (09:41)
[2023-10-05] MEDS: predniSONE 20 MG TABLET 60 MG PO (09:41)
[2023-10-05] MEDS: FAMOTIDINE 20 MG TABLET 40 MG PO (09:41)
[2023-10-05] MEDS: SPIRONOLACTONE 25 MG TABLET 50 MG PO (09:42)
[2023-10-05] MEDS: VENLAFAXINE HCL XR 75 MG CAP.ER.24H 150 MG PO (09:43)
[2023-10-05] MEDS: GABAPENTIN 300 MG CAPSULE PO ×2 (09:43→21:01)
[2023-10-05] MEDS: BUMETANIDE 1 MG TABLET 2 MG PO (09:43)
[2023-10-05 09:51] VITALS: BP 124/58; PULSE 65; RESP 14; O2SAT 97
[2023-10-05 09:52] VITALS: PULSE 65
[2023-10-05] MEDS: AMIODARONE HCL 200 MG TABLET PO (09:52)
[2023-10-05] MEDS: METOPROLOL SUCCINATE EXT REL 50 MG TABCR PO (09:52)
[2023-10-05] MEDS: BETAMETHASONE/CLOTRIMAZOLE CR 45 GM TUBE 1 APPLIC TOPICAL ×2 (09:53→21:03)
--- NOTE | 2023-10-05 10:27 | PM.IMPN ---
Progress Note: A&P Assessment and Plan (1) Swelling of lower extremity: Code(s): M79.89 - Other specified soft tissue disorders Status: Acute Assessment and Plan: Swelling of bilateral lower extremities, much worse on the left. Differential includes CHF exacerbation, vasculitis, peripheral vascular disease, cellulitis, DVT 10/05: yesterday swelling subsided significantly, today there is interval increase in swelling possibly due to dependent edema as well as subsequence of oral prednisone and choice of diuretic. (2) Cellulitis of left leg: Code(s): L03.116 - Cellulitis of left lower limb Status: Acute Assessment and Plan: Significant swelling left lower leg with weeping wounds scaly rash erythema diffusely worse than the right leg. ordered IV vancomycin and oral prednisone. Ordered Lotrisone cream topically to the rash area, this is to continue pending wound consult. (3) Rash: Code(s): R21 - Rash and other nonspecific skin eruption Status: Acute Assessment and Plan: Ordered Lotrisone cream topically to the rash area, this is to continue pending wound consult. (4) Essential (primary) hypertension: Code(s): I10 - Essential (primary) hypertension Status: Acute Assessment and Plan: Blood pressure reviewed 10/05. Blood pressures have been on the lower side, restart metoprolol hold on isosorbide (5) Paroxysmal atrial fibrillation: Code(s): I48.0 - Paroxysmal atrial fibrillation Status: Acute Assessment and Plan: Heart rate regular rhythm regular at time assessment, history of paroxysmal atrial fibrillation on warfarin for anticoagulation. INR is subtherapeutic. (6) CAMI (obstructive sleep apnea): Code(s): G47.33 - Obstructive sleep apnea (adult) (pediatric) Status: Acute Assessment and Plan: Will order auto PAP while admitted (7) Mechanical heart valve present: Code(s): Z95.2 - Presence of prosthetic heart valve Status: Acute Assessment and Plan: On warfarin, INR subtherapeutic But improving. Current INR is 1.5. She is getting Lovenox bridged q.12. Increase dose of warfarin today. Baseline dose of warfarin is 3 mg nightly. (8) Tobacco dependence syndrome: Code(s): F17.200 - Nicotine dependence, unspecified, uncomplicated Status: Acute Assessment and Plan: Reinforce smoking cessation, nicotine patch available p.r.n. (9) Diabetes type 2, controlled: Code(s): E11.9 - Type 2 diabetes mellitus without complications Status: Acute Assessment and Plan: Patient does not take anything for diabetes and only checks her blood sugar in the morning and at night at home. Hemoglobin A1c is 6.1. Because of the addition steroids we will obtain fingerstick glucose before meals and at bedtime and use sliding scale insulin as needed while admitted Time Spent With Patient Time with patient: 25 - 35 minutes Subjective Date/time seen: 10/05/23 10:27 Interval history: 10/03: This is a 58-year-old female patient extensive medical history including valve replacements, paroxysmal atrial fibrillation, COPD, tobacco dependence, liver cirrhosis, coronary artery disease stents, CABG, hypertension who is admitted to the hospital for bilateral lower extremity swelling left worse than right with diffuse rash across lower legs, abdomen and face/chin. Patient reports that she takes several diuretics at home including Lasix and Bumex and spironolactone but despite this she has had growing swelling in her legs. No significant shortness of breath or cough. She complains mostly of the H that the rash is causing. Left lower extremity is extremely swollen with weeping and signs of cellulitis. Will order venous ultrasound to rule out DVT, IV antibiotics and oral steroids. Will also use Lotrisone cream topically as the rash appears a could be fungal in nature as well. The legs appear they could be vascu
[2023-10-05 10:32] LABS: INR 1.5; Prothrombin Time 19.2 Seconds (11.1-14.7)
[2023-10-05] MEDS: POTASSIUM CHLORIDE 20 MEQ ER TABLET 60 MEQ PO (10:45)
[2023-10-05] MEDS: FUROSEMIDE 80 MG TABLET PO ×2 (10:45→17:30)
[2023-10-05 12:11] LABS: Glucose Point of Care 117 mg/dl (65-105)
[2023-10-05] MEDS: WARFARIN (*PBKC) 5 MG TABLET PO (12:52)
[2023-10-05 15:52] VITALS: BP 119/85; PULSE 59; RESP 17; TEMP 36.6; O2SAT 96
[2023-10-05 16:57] LABS: Glucose Point of Care 199 mg/dl (65-105)
[2023-10-05] MEDS: WARFARIN (*PBKC) 3 MG TABLET PO (17:30)
[2023-10-05] MEDS: ASPIRIN 81 MG ENTERIC TABLET PO (17:30)
[2023-10-05 20:01] LABS: Vancomycin Trough 20.7 ug/mL (10.0-20.0)
[2023-10-05] MEDS: QUEtiapine FUMARATE 100 MG TABLET 200 MG PO (21:01)
[2023-10-05] MEDS: ROSUVASTATIN 10 MG TABLET 40 MG PO (21:02)
[2023-10-05] MEDS: INSULIN GLARGINE (*BKC) 100 UNITS/ML 15 UNITS SUB-Q (21:06)
[2023-10-05 21:15] VITALS: O2SAT 97
[2023-10-05] MEDS: PRAMIPEXOLE 1 MG TABLET PO (21:15)
[2023-10-05 21:28] VITALS: BP 144/57; PULSE 52; RESP 20; TEMP 36; O2SAT 97
[2023-10-05 22:42] LABS: Glucose Point of Care 129 mg/dl (65-105)
[2023-10-06] MEDS: ENOXAPARIN 100 MG/ML SYRINGE SUB-Q (00:09)
[2023-10-06 03:43] VITALS: BP 126/58; PULSE 65; RESP 20; TEMP 36.1; O2SAT 91
[2023-10-06] MEDS: VANCOMYCIN 1,250 MG/NS 250 ML 1,250 MG/250 ML BAG 166.67 MG IVPB (05:20)
[2023-10-06 07:05] LABS: Basophils Percent Auto 0.2 % (0.2-1.2); Eosinophils Percent Auto 0.2 % (0-4.4); Hematocrit 38.3 % (37.0-47.0); Hemoglobin 11.1 g/dL (12.0-15.0); Immature Granulocyte Absolute 0.08 K/mm3 (0.00-0.031); Immature Granulocyte Percent A 0.9 % (0-0.5); Lymphocytes Absolute Auto 0.84 K/mm3 (0.9-3.2); Lymphocytes Percent Auto 9.1 % (18.3-44.2); Mean Corpuscular Hemoglobin 25.6 pg (26-34); Mean Corpuscular Volume 88.2 fl (80-100); Monocytes Absolute Auto 0.6 K/mm3 (0.1-0.6); Monocytes Percent Auto 6.5 % (2.6-8.5); Neutrophils Absolute Auto 7.7 K/mm3 (1.3-6.7); Neutrophils Percent Auto 83.1 % (45.5-73.1); Platelet Count Result 180 k/mm3 (150-375); Red Blood Count 4.34 M/mm3 (4.2-5.4); Red Cell Distribution Width 23.2 % (11.5-14.5); White Blood Count 9.2 K/mm3 (4.5-10.0)
[2023-10-06 07:17] LABS: INR 2.1; Prothrombin Time 25.1 Seconds (11.1-14.7)
[2023-10-06 07:32] LABS: Alanine Aminotransferase 28 U/L (6-35); Albumin Level 4.1 g/dL (3.5-5.1); Alkaline Phosphatase 283 U/L (38-126); Anion Gap 9 mmol/L (8-16); Aspartate Amino Transferase 33 U/L (14-36); Bilirubin,Total 0.9 mg/dL (0.2-1.3); Blood Urea Nitrogen 25 mg/dL (7-17); CRP 1.6 mg/dL (<1.0); Carbon Dioxide 30 mmol/L (22-30); Chloride 103 mmol/L (98-107); Estimated CRCL calculation 48 ml/min; Estimated Glomerular Filt Rate 46; Glucose 114 mg/dL (65-110); Magnesium 2.1 mg/dL (1.6-2.3); Potassium 3.5 mmol/L (3.4-5.0); Sodium 142 mmol/L (137-145)
[2023-10-06 07:43] LABS: Platelet Estimate Adequate (Adequate)
[2023-10-06 07:44] LABS: Anisocytosis 2+ (NORMAL); Hypochromasia 2+ (NORMAL); Schistocytes None Seen (NORMAL)
[2023-10-06 08:00] VITALS: O2SAT 91
[2023-10-06 08:07] LABS: Erythrocyte Sedimentation Rate 60 mm/hr (0-20)
[2023-10-06 08:08] LABS: Glucose Point of Care 177 mg/dl (65-105)
[2023-10-06 08:37] VITALS: PULSE 68
[2023-10-06] MEDS: GABAPENTIN 300 MG CAPSULE PO (08:37)
[2023-10-06] MEDS: THERAPEUTIC MULTIVITAMINS/MINERALS TAB (*BKC) 1 TABLET PO (08:37)
[2023-10-06] MEDS: FUROSEMIDE 80 MG TABLET PO (08:37)
[2023-10-06] MEDS: FAMOTIDINE 20 MG TABLET 40 MG PO (08:37)
[2023-10-06] MEDS: METOPROLOL SUCCINATE EXT REL 50 MG TABCR PO (08:37)
[2023-10-06 08:38] VITALS: PULSE 68
[2023-10-06] MEDS: VENLAFAXINE HCL XR 75 MG CAP.ER.24H 150 MG PO (08:38)
[2023-10-06] MEDS: SPIRONOLACTONE 25 MG TABLET 50 MG PO (08:38)
[2023-10-06] MEDS: AMIODARONE HCL 200 MG TABLET PO (08:38)
[2023-10-06] MEDS: BETAMETHASONE/CLOTRIMAZOLE CR 45 GM TUBE 1 APPLIC TOPICAL (09:24)
[2023-10-06 12:17] LABS: Glucose Point of Care 171 mg/dl (65-105)
--- NOTE | 2023-10-06 13:59 | PM.DS ---
DS: Admitting Diagnosis Discharge Date 10/06/2023 Admitting Diagnosis swelling of lower extremity, acute exacerbation of CHF, cellulitis of left leg, rash DS: Discharge Diagnosis Discharge Diagnosis (1) Swelling of lower extremity: Code(s): M79.89 - Other specified soft tissue disorders Status: Acute (2) Cellulitis of left leg: Code(s): L03.116 - Cellulitis of left lower limb Status: Acute (3) Rash: Code(s): R21 - Rash and other nonspecific skin eruption Status: Acute (4) Essential (primary) hypertension: Code(s): I10 - Essential (primary) hypertension Status: Acute (5) Paroxysmal atrial fibrillation: Code(s): I48.0 - Paroxysmal atrial fibrillation Status: Acute (6) CAMI (obstructive sleep apnea): Code(s): G47.33 - Obstructive sleep apnea (adult) (pediatric) Status: Acute (7) Mechanical heart valve present: Code(s): Z95.2 - Presence of prosthetic heart valve Status: Acute (8) Tobacco dependence syndrome: Code(s): F17.200 - Nicotine dependence, unspecified, uncomplicated Status: Acute (9) Diabetes type 2, controlled: Code(s): E11.9 - Type 2 diabetes mellitus without complications Status: Acute (10) Subtherapeutic international normalized ratio (INR): Code(s): R79.1 - Abnormal coagulation profile Status: Acute (11) Severe obstructive sleep apnea: Code(s): G47.33 - Obstructive sleep apnea (adult) (pediatric) Status: Acute (12) Acute on chronic diastolic CHF (congestive heart failure): Code(s): I50.33 - Acute on chronic diastolic (congestive) heart failure Status: Acute DS: Summary Hospital Course Reason for hospitalization: patient admitted for cellulitis left lower extremity Hospital Course: This is a 58-year-old female patient significant past medical history including congestive heart failure, mechanical valve replacement in the heart, atrial fibrillation type 2 diabetes, hypertension, depression and long-term anticoagulation admitted for lower extremity swelling cellulitis. Concern for exacerbation CHF as a contributing. 10/03:? This is a 58-year-old female patient extensive medical history including valve replacements, paroxysmal atrial fibrillation, COPD, tobacco dependence, liver cirrhosis, coronary artery disease stents, CABG, hypertension who is admitted to the hospital for bilateral lower extremity swelling left worse than right with diffuse rash across lower legs, abdomen and face/chin.? Patient reports that she takes several diuretics at home including Lasix and Bumex and spironolactone but despite this she has had growing swelling in her legs.? No significant shortness of breath or cough.? She complains mostly of the H that the rash is causing.? Left lower extremity is extremely swollen with weeping and signs of cellulitis.? Will order venous ultrasound to rule out DVT, IV antibiotics and oral steroids.? Will also use Lotrisone cream topically as the rash appears a could be fungal in nature as well.? The legs appear they could be vasculitis with superimposed cellulitis.? Wound Care will be consulted but unable to see the patient for a couple of days.? We will also obtain echocardiogram, low-sodium diet with fluid restriction and daily labs. 10/04: Patient reports that she is feeling somewhat better today.? She is not scratching the rash nearly as often.? Swelling in her legs is improving bilaterally.? Weeping of the left lower extremity is also improving.? Multiple open wounds remain.? We will liberalize fluid restriction slightly to 2000 mL per day.? Continue diuresis and IV antibiotics.? Continue topical rash treatment.? Wound care consult should see patient in 2 days.? Patient reports left shoulder pain and difficulty raising her arm status post fall at home.? She indicated she like an MRI while she was here however we cannot qualify her for an inpatient MRI for this reaso
[2023-10-06 14:00] VITALS: BP 121/52; PULSE 55; RESP 22; TEMP 36; O2SAT 98
== END 2023-10-06 15:12 | disposition home or self-care (01) | DRG 602 ==
LOC: ANHED 14:59 → ANH3MEDSUR 19:47 → ANH2MED 20:00
PROVIDERS: Emergency Medicine; Admitting Provider Internal Medicine; Emergency Provider Student in an Organized Health Care Education/Training Program; Visit Provider Nurse Practitioner
DX: L03.116 Cellulitis of left lower limb (principal); I50.33 Acute on chronic diastolic (congestive) heart failure; J96.21 Acute and chronic respiratory failure with hypoxia; I48.92 Unspecified atrial flutter; I11.0 Hypertensive heart disease with heart failure; I25.10 Atherosclerotic heart disease of native coronary artery without angina pectoris; J44.9 Chronic obstructive pulmonary disease, unspecified; E78.5 Hyperlipidemia, unspecified; E66.01 Morbid (severe) obesity due to excess calories; E11.9 Type 2 diabetes mellitus without complications; L29.9 Pruritus, unspecified; K74.60 Unspecified cirrhosis of liver; M25.512 Pain in left shoulder; G47.33 Obstructive sleep apnea (adult) (pediatric); G25.81 Restless legs syndrome; F17.290 Nicotine dependence, other tobacco product, uncomplicated; W19.XXXA Unspecified fall, initial encounter; Z79.4 Long term (current) use of insulin; Z79.01 Long term (current) use of anticoagulants; Z79.82 Long term (current) use of aspirin; Z95.1 Presence of aortocoronary bypass graft; Z95.4 Presence of other heart-valve replacement; Z95.5 Presence of coronary angioplasty implant and graft; Z23 Encounter for immunization; Z68.38 Body mass index [BMI] 38.0-38.9, adult
CPT/HCPCS: 36415; 71046; 73030; 73060; 80053; 80069; 80202; 82248; 82948; 83036; 83735; 83880; 84145; 84484; 85025; 85610; 85652; 85730; 86140; 90471; 90686; 93005; 93306; 93970; 96365; 96366; 96372; 96375; 99285; A9270; G0008; G0378; J1200; J1650; J1815; J1940; J2930; J3370; J7512